=== PATIENT | female | born 1990 | race Caucasian/White ===

== ENCOUNTER 2016-10-24 15:31 | Emergency (ER) | payer MEDICAID ==
[~2016-10-24] VITALS: Ht 167.6 cm; Wt 93.1 kg
[2016-10-24 15:33] VITALS: BP 143/91
[2016-10-24] MEDS ORDERED: KETOROLAC 30 MG/1 ML ONE (16:52)
[2016-10-24] MEDS ORDERED: KETOROLAC 30 MG/1 ML IM ONE (17:00)
== END 2016-10-24 17:56 | disposition home or self-care (01) ==
LOC: ED 17:38
DX: M51.16 Intervertebral disc disorders with radiculopathy, lumbar region (principal)
CPT/HCPCS: 96372; 99283; J1885